=== PATIENT | male | born 1990 | race African-American/Black ===

== ENCOUNTER 2021-05-09 01:46 | Emergency (ER) | payer OTHER ==
[~2021-05-09] VITALS: Ht 203.2 cm; Wt 90.7 kg
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
[2021-05-09 01:48] VITALS: BP 112/73
== END 2021-05-09 05:45 | disposition home or self-care (01) ==
LOC: ER 01:46
DX: F10.129 Alcohol abuse with intoxication, unspecified (principal)